=== PATIENT | male | born 1945 | race Caucasian/White ===

== ENCOUNTER 2017-01-17 11:16 | Emergency (ER) | payer MEDICARE ==
[2017-01-17] MEDS ORDERED: Phenergan 25 MG INJ IV ONE (11:43)
[2017-01-17] MEDS ORDERED: Hydromorphone 1 mg/ml Ampule IV ONE (11:43)
[2017-01-17] MEDS ORDERED: Sodium Chloride 0.9% 1000 ML 1,000 ML IV STA (11:43)
--- NOTE | 2017-01-17 11:44 | ERPHSYRPT ---
- History of Present Illness Time Seen by Provider: 01/17/17 11:37 Historian: patient Exam Limitations: no limitations Patient Subjective Stated Complaint: CO ABD PAIN AND LEFT FLANK PAIN STARTED YESTERDAY, NAUSEA AND VOMITING, NO FEVER. LAST BM YESTERDAY, CONSTIPATED, VOIDING BLOOD THIS AM Triage Nursing Assessment: PT ALERT,WALKED IN, RESP EASY, SIN W/D PINK, ABD SOFT WITH BS Physician History: The patient is a 71-year-old male who comes in complaining of left flank pain that began yesterday. He was very uncomfortable all night. He also vomited. He has a history of constipation. This morning he drank a half a bottle of magnesium citrate without good results. He also noticed a red tinged in his urine this morning. He has never had kidney stones. His past medical history significant for depression and hypertension. He's had no abdominal surgeries. Timing/Duration: yesterday Activities at Onset: none Quality: sharpness Abdominal Pain Onset Location: flank (left) Pain Radiation: groin Severity of Pain-Max: moderate Severity of Pain-Current: moderate Modifying Factors: Improves With: nothing Associated Symptoms: nausea, vomiting Previous symptoms: no prior history Allergies/Adverse Reactions: No Known Drug Allergies Allergy (Verified 01/17/17 11:33) Home Medications: Escitalopram Oxalate 10 mg [Lexapro 10 MG] 10 mg PO DAILY 03/27/12 [History] Valsartan/Hydrochlorothiazide [Valsartan-Hctz 160-25 mg Tab] 1 ea DAILY [History] Hx Tetanus, Diphtheria Vaccination/Date Given: Yes (UNKNOWN) Hx Influenza Vaccination/Date Given: No Hx Pneumococcal Vaccination/Date Given: No Immunizations Up to Date: Yes - Review of Systems Constitutional: No Fever, No Chills Eyes: No Symptoms Ears, Nose, & Throat: No Symptoms Respiratory: No Cough, No Dyspnea Cardiac: No Chest Pain, No Edema, No Syncope Abdominal/Gastrointestinal: Abdominal Pain, Nausea, Vomiting, Constipation, No Diarrhea Genitourinary Symptoms: Hematuria Musculoskeletal: No Back Pain, No Neck Pain Skin: No Rash Neurological: No Symptoms Psychological: No Symptoms Endocrine: No Symptoms Hematologic/Lymphatic: No Symptoms Immunological/Allergic: No Symptoms All Other Systems: Reviewed and Negative - Past Medical History Pertinent Past Medical History: Yes Cardiac History: Hypertension Psycho-Social History: Depression - Past Surgical History Past Surgical History: Yes Gastrointestinal: Hemorrhoidectomy - Social History Smoking Status: Current every day smoker Exposure to second hand smoke: Yes Drug Use: none Patient Lives Alone: Yes - Nursing Vital Signs Nursing Vital Signs: Initial Vital Signs Temperature 97.8 F 01/17/17 11:26 Pulse Rate 91 H 01/17/17 11:26 Respiratory Rate 20 01/17/17 11:26 Blood Pressure 150/38 01/17/17 11:26 O2 Sat by Pulse Oximetry 95 01/17/17 11:26 Pain Scale Pain Intensity 4 - Physical Exam General Appearance: moderate distress Eye Exam: PERRL/EOMI, eyes nml inspection Ears, Nose, Throat Exam: normal ENT inspection, pharynx normal, moist mucous membranes Neck Exam: normal inspection, non-tender, supple, full range of motion Respiratory Exam: normal breath sounds, lungs clear, No respiratory distress Cardiovascular Exam: regular rate/rhythm, normal heart sounds Gastrointestinal/Abdomen Exam: soft, No tenderness, No mass Rectal Exam: not done Back Exam: CVA tenderness (left) Extremity Exam: normal inspection, normal range of motion, pelvis stable Neurologic Exam: alert, oriented x 3, cooperative, normal mood/affect, nml cerebellar function, sensation nml, No motor deficits Skin Exam: normal color, warm, dry SpO2 Interpretation: normal SpO2: 95 Oxygen Delivery: Room Air - CT Exams Abdomen/Pelvis CT Interpretation: Other (5 to 6 mm left midureteral calculus with mild hydronephrosis. Enlarging left inguinal hernia. 3.[address] distal AAA. per Dr Greenberg.) Ordered Tests: Active Orders 24 hr Category Date Time Status IV Insertion STAT Care 01/17/17 11:43 Active ABDOMEN AND PELVIS W/0 CONTRAS [CT] Stat Exams 01/17/17 11:44 Completed CBC W DIFF Stat Lab 01/17/17 11:53 Completed CMP Stat Lab 01/17/17 11:53 Completed CULTURE,URINE Stat Lab 01/17/17 12:45 Received LIPASE Stat Lab 01/17/17 11:53 Completed TROPONIN Q3H Lab 01/17/17 11:45 Completed TROPONIN Q3H Lab 01/17/17 14:45 Ordered TROPONIN Q3H Lab 01/17/17 17:45 Ordered TROPONIN Q3H Lab 01/17/17 20:45 Ordered TROPONIN Q3H Lab 01/17/17 23:45 Ordered UA W/ MICROSCOPIC Stat Lab 01/17/17 12:45 Completed Medication Summary Generic Name Dose Route Start Last Admin Trade Name Wood PRN Reason Stop Dose Admin Ceftriaxone Sodium/Dextrose 1 g in 50 mls @ 100 mls/hr 01/17/17 13:27 13:38 Rocephin 1 Gm-D5w 50 Ml Bag IV 01/17/17 13:56 100 mls/hr STAT STA Administration Discontinued Medications Generic Name Dose Route Start Last Admin Trade Name Wood PRN Reason Stop Dose Admin Hydromorphone HCl 1 mg 01/17/17 11:43 01/17/17 11:53 Hydromorphone 1 Mg/Ml Ampule IV 01/17/17 11:44 1 mg STAT ONE Administration Hydromorphone HCl Confirm 01/17/17 11:51 Hydromorphone 1 Mg/Ml Ampule Administered 01/17/17 11:52 Dose 1 mg .ROUTE .STK-MED ONE Sodium Chloride 1,000 mls @ 999 mls/hr 01/17/17 11:43 01/17/17 11:53 Sodium Chloride 0.9% 1000 Ml IV 01/17/17 12:43 999 mls/hr .Q1H1M STA Administration Sodium Chloride Confirm 01/17/17 11:51 Sodium Chloride 0.9% 1000 Ml Administered 01/17/17 11:52 Dose 1,000 mls @ ud .ROUTE .STK-MED ONE Ceftriaxone Sodium/Dextrose Confirm 01/17/17 13:37 Rocephin 1 Gm-D5w 50 Ml Bag Administered 01/17/17 13:38 Dose 1 g in 50 mls @ ud IV .STK-MED ONE Ketorolac Tromethamine 30 mg 01/17/17 11:45 01/17/17 11:52 Toradol 30 Mg Injection IV 01/17/17 11:46 30 mg STAT ONE Administration Ketorolac Tromethamine Confirm 01/17/17 11:50 Toradol 30 Mg Injection Administered 01/17/17 11:51 Dose 30 mg .ROUTE .STK-MED ONE Promethazine HCl 12.5 mg 01/17/17 11:43 01/17/17 11:53 Phenergan 25 Mg Inj IV 01/17/17 11:44 12.5 mg STAT ONE Administration Promethazine HCl Confirm 01/17/17 11:50 Phenergan 25 Mg Inj Administered 01/17/17 11:51 Dose 25 mg .ROUTE .STK-MED ONE Tamsulosin HCl 0.4 mg 01/17/17 11:45 01/17/17 11:52 Flomax 0.4 Mg PO 01/17/17 11:46 0.4 mg DAILY STA Administration Tamsulosin HCl Confirm 01/17/17 11:51 Flomax 0.4 Mg Administered 01/17/17 11:52 Dose 0.4 mg .ROUTE .STK-MED ONE Lab/Rad Data: Laboratory Result Diagrams 01/17/17 11:53 01/17/17 11:53 Laboratory Results 01/17/17 01/17/17 01/17/17 Range/Units 12:45 11:53 11:53 WBC 13.2 H (4.0-10.5) K/mm3 RBC 4.88 (4.1-5.6) M/mm3 Hgb 14.3 (12.5-18.0) gm/dl Hct 42.2 (42-50) % MCV 86.5 (78-100) fl MCH 29.3 (26-32) pg MCHC 33.9 (32-36) g/dl RDW 13.6 (11.5-14.0) % Plt Count 263 (150-450) K/mm3 MPV 10.1 H (6-9.5) fl Gran % 82.7 H (36.0-66.0) % Lymphocytes % 7.6 L (24.0-44.0) % Monocytes % 9.4 (0.0-12.0) % Eosinophils % 0.1 (0.00-5.0) % Basophils % 0.2 (0.0-0.4) % Basophils # 0.02 (0-0.4) Sodium 143 (136-145) mEq/L Potassium 3.7 (3.5-5.1) mEq/L Chloride 103 (98-107) mEq/L Carbon Dioxide 28.0 (21-32) mEq/L Anion Gap 15.3 H (5-15) MEQ/L BUN 12 (9-20) mg/dL Creatinine 1.60 H (0.55-1.30) mg/dl Estimated GFR 46 ML/MIN Glucose 137 H (70-110) MG/DL Calcium 9.0 (8.5-10.1) mg/dL Total Bilirubin 0.60 (0.2-1.0) mg/dL AST 20 (15-37) U/L ALT 20 (12-78) U/L Alkaline Phosphatase 92 (46-116) U/L Troponin I (0.000-0.056) ng/ml Serum Total Protein 7.3 (6.4-8.2) gm/dL Albumin 3.6 (3.4-5.0) g/dL Lipase 81 (73-393) U/L Ur Collection Type VOID Urine Color BROWN (YELLOW) Urine Appearance CLOUDY (CLEAR) Urine pH 7.0 (5-6) Ur Specific [place] 1.010 (1.005-1.025) Urine Protein TRACE (Negative) Urine Ketones NEGATIVE (NEGATIVE) Urine Blood 250 (0-5) Uriel/ul Urine Nitrite NEGATIVE (NEGATIVE) Urine Bilirubin SMALL (NEGATIVE) Urine Urobilinogen 1 (0-1) mg/dL Ur Leukocyte Esterase 1+ (NEGATIVE) Urine Microscopic RBC >100 (0-2) /HPF Urine Microscopic WBC >100 (0-5) /HPF Urine Bacteria FEW (NEGATIVE) /HPF Urine Glucose TRACE (NEGATIVE) mg/dL Specimen Received 01/17/17 1245 01/17/17 Range/Units 11:45 WBC (4.0-10.5) K/mm3 RBC (4.1-5.6) M/mm3 Hgb (12.5-18.0) gm/dl Hct (42-50) % MCV (78-100) fl MCH (26-32) pg MCHC (32-36) g/dl RDW (11.5-14.0) % Plt Count (150-450) K/mm3 MPV (6-9.5) fl Gran % (36.0-66.0) % Lymphocytes % (24.0-44.0) % Monocytes % (0.0-12.0) % Eosinophils % (0.00-5.0) % Basophils % (0.0-0.4) % Basophils # (0-0.4) Sodium (136-145) mEq/L Potassium (3.5-5.1) mEq/L Chloride (98-107) mEq/L Carbon Dioxide (21-32) mEq/L Anion Gap (5-15) MEQ/L BUN (9-20) mg/dL Creatinine (0.55-1.30) mg/dl Estimated GFR ML/MIN Glucose (70-110) MG/DL Calcium (8.5-10.1) mg/dL Total Bilirubin (0.2-1.0) mg/dL AST (15-37) U/L ALT (12-78) U/L Alkaline Phosphatase (46-116) U/L Troponin I < 0.017 (0.000-0.056) ng/ml Serum Total Protein (6.4-8.2) gm/dL Albumin (3.4-5.0) g/dL Lipase (73-393) U/L Ur Collection Type Urine Color (YELLOW) Urine Appearance (CLEAR) Urine pH (5-6) Ur Specific [place] (1.005-1.025) Urine Protein (Negative) Urine Ketones (NEGATIVE) Urine Blood (0-5) Uriel/ul Urine Nitrite (NEGATIVE) Urine Bilirubin (NEGATIVE) Urine Urobilinogen (0-1) mg/dL Ur Leukocyte Esterase (NEGATIVE) Urine Microscopic RBC (0-2) /HPF Urine Microscopic WBC (0-5) /HPF Urine Bacteria (NEGATIVE) /HPF Urine Glucose (NEGATIVE) mg/dL Specimen Received - Progress Progress: improved Progress Note: 01/17/17 13:54 After Dilaudid 1 mg and Phenergan 12-1/2 mg by IV, the patient is feeling much better. - Departure Time of Disposition: 13:54 Departure Disposition: Home Clinical Impression: Left ureteral calculus, Hydronephrosis due to obstruction of ureter, Abdominal aortic aneurysm (AAA), UTI (urinary tract infection), Inguinal hernia Condition: Stable Critical Care Time: No Referrals: DONNA LAGUNA MD [Primary Care Provider] - Additional Instructions: You have a 5 mm kidney stone in the mid left ureter with mild hydronephrosis. You also have a UTI. The CT scan of the abdomen also showed a left inguinal hernia and a 3.1 cm abdominal aortic aneurysm. You were given Dilaudid 1 mg, Phenergan 12-1/2 mg, Rocephin 1 g, toradol 30 mg, and fluids by IV in the ER. You were also given Flomax 0.4 mg. Take ciprofloxacin 500 mg twice a day for 10 days. Take [place] one tablet every 4-6 hours as needed for pain. Stay well hydrated. Collect the stone after passage and take it to your local doctor. Follow-up this week with your local doctor to reevaluate the kidney stone and for follow-up of the aortic aneurysm. Prescriptions: Ciprofloxacin [Cipro 500 MG] 1 tab PO BID #20 tablet Hydrocodone/APAP 5/325 [[place] 5/325 mg] 1 each PO Q4-6HPRN PRN #10 tablet PRN Reason: Moderate Pain
[2017-01-17] MEDS ORDERED: Flomax 0.4 MG PO STA (11:45)
[2017-01-17] MEDS ORDERED: TORAdol 30 mg Injection IV ONE (11:45)
[2017-01-17] MEDS ORDERED: TORAdol 30 mg Injection ONE (11:50)
[2017-01-17] MEDS ORDERED: Phenergan 25 MG INJ ONE (11:50)
[2017-01-17] MEDS ORDERED: Hydromorphone 1 mg/ml Ampule ONE (11:51)
[2017-01-17] MEDS ORDERED: Flomax 0.4 MG ONE (11:51)
[2017-01-17] MEDS ORDERED: Sodium Chloride 0.9% 1000 ML 1,000 ML ONE (11:51)
[2017-01-17 12:02] LABS: BASOPHIL % 0.2 % (0.0-0.4); Eosinophil % 0.1 % (0.00-5.0); Granulocytes % 82.7 % (36.0-66.0); Lymphocytes % 7.6 % (24.0-44.0); Mean Cell Volume 86.5 fl (78-100); Mean Corpuscular Hemoglobin 29.3 pg (26-32); Mean Platelet Volume 10.1 fl (6-9.5); Monocytes % 9.4 % (0.0-12.0); Platelet Count 263 K/mm3 (150-450); Red Blood Count 4.88 M/mm3 (4.1-5.6); Red Cell Distribution Width 13.6 % (11.5-14.0); White Blood Count 13.2 K/mm3 (4.0-10.5)
[2017-01-17 12:25] LABS: ALBUMIN 3.6 g/dL (3.4-5.0); ANION GAP 15.3 MEQ/L (5-15); BILIRUBIN,TOTAL 0.6 mg/dL (0.2-1.0); Potassium 3.7 mEq/L (3.5-5.1); Total Protein 7.3 gm/dL (6.4-8.2)
--- NOTE | 2017-01-17 12:42 | XRAY ---
Indication: Left lower pelvic and back pain. Hematuria. Multiple contiguous axial images obtained through the abdomen and pelvis without contrast using renal stone protocol. Comparison: March 27, 2012. Lung bases again hyperinflated. Minimal bibasilar atelectasis/scarring. No infiltrate or effusion. Heart is not enlarged. There is now a 5-6 mm left midureteral calculus, approximately L5 level. Proximal left ureter is prominence and there is mild hydronephrosis and perinephric stranding consistent with partial obstructive uropathy. New 7 mm left lower renal calyx curvilinear calculus.. Stomach is moderately fluid distended. Noncontrasted bowel loops appear nonobstructed. Normal appendix. No free fluid/air. Again scattered hepatic/splenic calcified granulomas, 3.5 cm caudate lobe hepatic cyst, and benign prostate calcifications. Remaining liver, gallbladder, pancreas, spleen, adrenal glands, right kidney, right ureter, and bladder appear unremarkable for noncontrast exam. Again moderate aortoiliac calcifications with now 3.1 cm distal aortic fusiform aneurysm. Osseous structures intact. Interval worsening moderate size left inguinal hernia now containing knuckle of sigmoid colon without obstruction/incarceration. Impression: 1. New 5-6 mm left midureteral calculus producing partial obstruction as detailed. Additional new left renal subcentimeter calculus. 2. Enlarging left inguinal hernia now containing a knuckle of sigmoid colon without complications. 3. New 3.1 cm distal AAA. 4. Stable hepatic cyst and hepatic/splenic calcified granulomas. CT DI 22.97
[2017-01-17 12:47] LABS: Bilirubin SMALL (NEGATIVE); Blood 250 Ery/ul (0-5); COMPLETE URINE MICROSCOPIC? YES; Collection Type VOID; Glucose TRACE mg/dL (NEGATIVE); Leukocyte Esterase 1+ (NEGATIVE)
[2017-01-17 12:48] LABS: ADD URINE CULTURE? YES (NO)
[2017-01-17 13:17] LABS: Bacteria FEW /HPF (NEGATIVE); WBC >100 /HPF (0-5)
[2017-01-17 13:20] VITALS: PULSE 70
[2017-01-17] MEDS ORDERED: ROCEPHIN 1 Gm-D5w 50 ml Bag** 1 G/50 ML IVPB IV STA (13:27)
[2017-01-17 13:28] VITALS: O2SAT 95
[2017-01-17] MEDS ORDERED: ROCEPHIN 1 Gm-D5w 50 ml Bag** 1 G/50 ML IVPB IV ONE (13:37)
[2017-01-17 14:16] VITALS: BP 123/73
== END 2017-01-17 14:17 | disposition home or self-care (01) ==
LOC: ED 11:16
DX: N20.1 Calculus of ureter (principal); N13.1 Hydronephrosis with ureteral stricture, not elsewhere classified; I71.4 Abdominal aortic aneurysm, without rupture; N39.0 Urinary tract infection, site not specified; K40.90 Unilateral inguinal hernia, without obstruction or gangrene, not specified as recurrent; R11.2 Nausea with vomiting, unspecified; I10 Essential (primary) hypertension; K59.00 Constipation, unspecified
CPT/HCPCS: 36000; 36415; 74176; 80053; 81000; 83690; 84484; 85025; 87086; 96360; 96374; 96375; 99284; J0696; J1170; J1885; J2550; A9270-GY

== ENCOUNTER 2018-09-28 10:58 | Day surgery (SDC) | payer MEDICARE ==
--- NOTE | 2018-09-28 07:55 | HP ---
DATE OF SURGERY: 09/28/2018 ANTICIPATED PROCEDURE: Repair. ADMISSION DIAGNOSIS: Moderate sized symptomatic left inguinal hernia. HISTORY OF PRESENT ILLNESS: The patient has a moderate sized symptomatic left inguinal hernia and presents for repair. PAST MEDICAL HISTORY: ALLERGIES: NONE. MEDICATIONS: Losartan. PAST SURGICAL HISTORY: Hemorrhoidectomy. SOCIAL HISTORY: Half pack per day. ETOH negative. FAMILY HISTORY: Negative. REVIEW OF SYSTEMS: CVS: Negative. Pulmonary: Negative. GI: Negative. : Negative. PHYSICAL EXAMINATION: VITAL SIGNS: Normal. CHEST: Clear. COR: Regular. ABDOMEN: Left inguinal hernia. IMPRESSION: Symptomatic left inguinal hernia. PLAN: Repair.
[~2018-09-28 10:58] MED LIST: Lactated Ringers 1,000 ML IV ONE; Sensorcaine 0.25% 10 ML ONE
[2018-09-28] MEDS ORDERED: Zofran 4 MG/2 ML VIAL IV ONE (10:59)
[2018-09-28] MEDS ORDERED: SUBLIMAZE 100 MCG/2 ML IV ONE (10:59)
[2018-09-28] MEDS ORDERED: DIPRIVAN 200 MG/20 ML IV ONE (10:59)
[2018-09-28] MEDS ORDERED: TORAdol 30 mg Injection IJ ONE (10:59)
[2018-09-28] MEDS ORDERED: Zemuron 100 MG/10 ML IJ ONE (10:59)
[2018-09-28] MEDS ORDERED: Decadron 4 MG INJ IV ONE (10:59)
[2018-09-28] MEDS ORDERED: Lactated Ringers 1,000 ML IV SCH (11:30)
[2018-09-28] MEDS ORDERED: CEFAZOLIN 2 GM-D5W BAG** 2 GM/50 ML ML IV ONE (11:30)
[2018-09-28] MEDS ORDERED: Lactated Ringers 1,000 ML IV ONE (11:30)
[2018-09-28] MEDS ORDERED: CEFAZOLIN 2 GM-D5W BAG** 2 GM/50 ML ML IV SCH (11:30)
[2018-09-28] MEDS ORDERED: KEFZOL 1 GM ONE (12:54)
[2018-09-28] MEDS ORDERED: DILAUDID 2 MG INJECTION ONE (14:11)
[2018-09-28] MEDS ORDERED: SUBLIMAZE 100 MCG/2 ML ONE (14:11)
[2018-09-28 15:32] VITALS: O2SAT 98
[2018-09-28] MEDS ORDERED: Zofran 4 MG/2 ML VIAL IV STA (15:34)
[2018-09-28] MEDS ORDERED: MORPHINE SULFATE 2 MG INJ IV ONE (15:35)
[2018-09-28 16:09] VITALS: BP 143/72; PULSE 78
--- NOTE | 2018-09-29 09:30 | OP ---
SURGERY DATE/TIME: 09/28/2018 1308 PREOPERATIVE DIAGNOSIS: Left inguinal hernia. POSTOPERATIVE DIAGNOSIS: Left inguinal hernia large with incarcerated sliding colon. PROCEDURE: Left inguinal herniorrhaphy with mesh, difficult. SURGEON: Heriberto Treadwell M.D. ANESTHESIA: General. COMPLICATIONS: None. CONDITION: Stable. INDICATION: The patient has symptomatic left inguinal hernia. DESCRIPTION OF PROCEDURE: Taken to surgery. General anesthetic. Routine prep and drape. Curvilinear incision. 0.25% Marcaine. External oblique opened. Cord skeletonized. There was a very thick cord being nearly 3 inches. There was an 8 inch long sac 3 inches wide. Around 90 degrees of this was sliding sigmoid colon about 8 inches of colon going out and about 8 inches coming back where 16 inch loop was present. Pseudo sac was dissected. The colon reduced. The pseudo sac closed with 0 Prolene under direct visualization. The floor reinforced with a preform mesh secured with 0 Prolene throughout. Internal ring was one clamp tight. Hemostasis satisfactory. External oblique closed with 0 Vicryl. Monica fascia closed with 2-0 Vicryl. Skin closed with 4-0 Vicryl. Steri-Strips applied. Sterile dressing applied. The patient tolerated the procedure satisfactorily.
== END 2018-09-28 16:26 | disposition home or self-care (01) ==
LOC: SDC 10:58
PROVIDERS: ATTEND Surgery
DX: K40.30 Unilateral inguinal hernia, with obstruction, without gangrene, not specified as recurrent (principal)
CPT/HCPCS: 49507; C1781; 88302; 99100; J0690; J1100; J1170; J1885; J2270; J2405; J2704; J3010

== ENCOUNTER 2024-03-13 15:35 | Observation (INO) | payer MEDICARE ==
--- NOTE | 2024-03-13 15:52 | ERPHSYRPT ---
- History of Present Illness Time Seen by Provider: 03/13/24 15:49 Historian: patient Exam Limitations: no limitations Patient Subjective Stated Complaint: Pt states "I have been having cramps in my chest at night for the past week. Today I was cleaning out the gutters and it started to hurt and I used one of those oxygen finger things and my rate was in the 180's. It does not hurt now." Triage Nursing Assessment: Pt presented alert and oriented X 3, skin wpd. Pt ambulates with an upright steady gait, able to speak in clear full sentences. Pt resting cofortably on the bed. Physician History: 79-year-old male history of hypertension hypercholesterolemia current smoker last cardiac stress test was in 2019 presents to our ED for evaluation of intermittent chest pain that has been ongoing throughout the week. However today patient was working on his gutters and the pain reoccurred. Patient checked his pulse on a pulse oximeter and reports that it was 180. No active chest pain at this time. Patient took a 181 mg aspirin just prior to arrival. No associated nausea no vomiting no diaphoresis. Symptoms when present were moderate in intensity. Activity seems to worsen symptoms. Patient otherwise feels well. He voices no other complaints or concerns at this time. Portions of this note were created with voice recognition technology. There may be grammatical, spelling, punctuation or sound alike errors Timing/Duration: day(s) (3 days) Activities at Onset: activity Quality: aching Location: substernal Chest Pain Radiation: no radiation Severity of Pain-Max: moderate Severity of Pain-Current: mild Modifying Factors: Improves With: nothing Associated Symptoms: denies symptoms Nitro Today/Relief: no nitro taken today Aspirin Treatment Today: 81 mg x 1 Allergies/Adverse Reactions: No Known Drug Allergies Allergy (Verified 09/28/18 11:56) Home Medications: Escitalopram Oxalate [Lexapro] 10 mg PO DAILY 03/27/12 [History] Valsartan/Hydrochlorothiazide [Valsartan-Hctz 160-25 mg Tab] 1 ea PO DAILY 01/17/17 [History] Atorvastatin Calcium [Lipitor] 20 mg PO DAILY 03/13/24 [History] PANTOPRAZOLE 40 mg Tablet [Protonix 40MG Tablet] 40 mg PO DAILY 03/13/24 [History] Hx Tetanus, Diphtheria Vaccination/Date Given: No (UNKNOWN) Hx Influenza Vaccination/Date Given: No Hx Pneumococcal Vaccination/Date Given: No Travel Risk - International Travel Have you traveled outside of the country in past 3 weeks: No - Emerging Infectious Disease Are you exhibiting symptoms associated with any current EIDs: No - Review of Systems Constitutional: No Symptoms, No Fever, No Chills Eyes: No Symptoms Ears, Nose, & Throat: No Symptoms Respiratory: No Symptoms, No Cough, No Dyspnea Cardiac: No Symptoms, No Chest Pain, No Edema, No Syncope Abdominal/Gastrointestinal: No Symptoms, No Abdominal Pain, No Nausea, No Vomiti ng, No Diarrhea Genitourinary Symptoms: No Symptoms, No Dysuria Musculoskeletal: No Symptoms, No Back Pain, No Neck Pain Skin: No Symptoms, No Rash Neurological: No Symptoms, No Dizziness, No Focal Weakness, No Sensory Changes Psychological: No Symptoms Endocrine: No Symptoms Hematologic/Lymphatic: No Symptoms Immunological/Allergic: No Symptoms All Other Systems: Reviewed and Negative - Past Medical History Pertinent Past Medical History: Yes Neurological History: No Pertinent History ENT History: No Pertinent History Cardiac History: High Cholesterol, Hypertension Respiratory History: No Pertinent History Endocrine Medical History: No Pertinent History Musculoskeletal History: No Pertinent History GI Medical History: GERD History: No Pertinent History Psycho-Social History: Depression Male Reproductive Disorders: No Pertinent History - Past Surgical History Past Surgical History: Yes Gastrointestinal: Hemorrhoidectomy Other Surgical History: hernia - Social History Smoking Status: Current every day smoker How long have you smoked: years Exposure to second hand smoke: Yes Drug Use: none Patient Lives Alone: Yes - Social Determinants of Health Will the patient participate in the screening: Declined to provide - Nursing Vital Signs Nursing Vital Signs: Initial Vital Signs Temperature 97.6 F 03/13/24 15:35 Pulse Rate 101 H 03/13/24 15:35 Respiratory Rate 18 03/13/24 15:35 Blood Pressure 107/75 03/13/24 15:35 O2 Sat by Pulse Oximetry 97 03/13/24 15:35 Pain Scale Pain Intensity 0 - Physical Exam General Appearance: no apparent distress, alert Eye Exam: PERRL/EOMI, eyes nml inspection Ears, Nose, Throat Exam: normal ENT inspection, moist mucous membranes Neck Exam: normal inspection, non-tender, supple, full range of motion Respiratory Exam: normal breath sounds, lungs clear, airway intact, No respiratory distress Cardiovascular Exam: regular rate/rhythm, normal heart sounds Gastrointestinal/Abdomen Exam: soft, No tenderness, No mass Back Exam: normal inspection, No CVA tenderness, No vertebral tenderness Extremity Exam: normal inspection, normal range of motion Neurologic Exam: alert, oriented x 3, cooperative, normal mood/affect, sensation nml, No motor deficits Skin Exam: normal color, warm, dry SpO2 Interpretation: normal SpO2: 97 O2 Delivery: Room Air - Course Nursing assessment & vital signs reviewed: Yes EKG Interpreted by Me: RATE (101), Sinus Tach, NORMAL AXIS, NORMAL INTERVALS, NORMAL QRS - CT Exams Chest CT Interpretation: Tele-radiologist Report (No PE. Emphysema, 5 mm right upper lobe not calcified lung nodule small hiatal hernia fatty liver 3.6 cm distal AAA) Ordered Tests: Active Orders 24 hr Category Date Time Status Embedded Software Manager STAT Care 03/13/24 15:48 Active EKG-ER Only STAT Care 03/13/24 15:47 Active IV Insertion STAT Care 03/13/24 15:47 Active Pulse Oximetry (ED) STAT Care 03/13/24 15:47 Active CHEST WITH CONTRAST [CT] Stat Exams 03/13/24 16:13 Taken CBC W DIFF Stat Lab 03/13/24 15:30 Completed CMP Stat Lab 03/13/24 15:30 Completed D-DIMER QUANTITATIVE Stat Lab 03/13/24 15:30 Completed NT PRO BNPII Stat Lab 03/13/24 15:30 Completed TROPONIN Q4H Lab 03/13/24 15:30 Completed TROPONIN Q4H Lab 03/13/24 18:05 Completed TROPONIN Q4H Lab 03/14/24 00:00 Ordered UA W/RFX UR CULTURE Stat Lab 03/13/24 18:20 Received Transfer Order Routine Transfer 03/13/24 Ordered Medication Summary Discontinued Medications Generic Name Dose Route Start Last Admin Trade Name Freq PRN Reason Stop Dose Admin Aspirin 243 mg 03/13/24 15:52 03/13/24 16:19 Aspirin 81 Mg Tab.Chew PO 03/13/24 15:53 243 mg STAT ONE Administration Aspirin Confirm 03/13/24 16:19 Aspirin 81 Mg Tab.Chew Administered 03/13/24 16:20 Dose 243 mg .ROUTE .STK-MED ONE Lab/Rad Data: Laboratory Result Diagrams 03/13/24 15:30 03/13/24 15:30 Laboratory Results 03/13/24 03/13/24 03/13/24 Range/Units 18:05 15:30 15:30 WBC (4.23-9.07) x10^3/uL RBC (4.63-6.08) x10^6/uL Hgb (13.7-17.5) g/dL Hct (40.1-51.0) % MCV (79.0-92.2) fL MCH (25.7-32.2) pg MCHC (32.3-36.5) g/dL RDW (11.6-14.4) % Plt Count (163-337) x10^3/uL MPV (9.4-12.4) fL Gran % (34.0-67.9) % Immature Gran % (Auto) (0.001-0.429) % Nucleat RBC Rel Count (0.00-0.2) % Eos # (Auto) (0.04-0.54) x10^3/uL Immature Gran # (Auto) (0.001-0.031) x10^3u/L Absolute Lymphs (auto) (1.32-3.57) x10^3/uL Absolute Monos (auto) (0.30-0.82) x10^3/uL Absolute Nucleated RBC (0.00-0.012) x10^3u/L Lymphocytes % (21.8-53.1) % Monocytes % (5.3-12.2) % Eosinophils % (0.8-7.0) % Basophils % (0.2-1.2) % Absolute Granulocytes (1.78-5.38) x10^3/uL Basophils # (0.01-0.08) x10^3/uL D-Dimer 0.75 H* (0.0-0.50) mg/L Sodium (135-145) mmol/L Potassium (3.5-5.1) mmol/L Chloride (98-107) mmol/L Carbon Dioxide (22-30) mmol/L Anion Gap (5-15) MEQ/L BUN (9-20) mg/dL Creatinine (0.66-1.25) mg/dL Estimated GFR ML/MIN Glucose (74-106) mg/dL Calcium (8.4-10.2) mg/dL Total Bilirubin (0.2-1.3) mg/dL AST (17-59) U/L ALT (0-50) U/L Alkaline Phosphatase (38-126) U/L Troponin I < 0.012 < 0.012 (0.000-0.033) ng/mL NT-Pro-B Natriuret Pep (<300) pg/mL Serum Total Protein (6.3-8.2) g/dL Albumin (3.5-5.0) g/dL 03/13/24 03/13/24 Range/Units 15:30 15:30 WBC 9.5 H (4.23-9.07) x10^3/uL RBC 4.71 (4.63-6.08) x10^6/uL Hgb 14.8 (13.7-17.5) g/dL Hct 43.1 (40.1-51.0) % MCV 91.5 (79.0-92.2) fL MCH 31.4 (25.7-32.2) pg MCHC 34.3 (32.3-36.5) g/dL RDW 13.3 (11.6-14.4) % Plt Count 241 (163-337) x10^3/uL MPV 8.7 L (9.4-12.4) fL Gran % 77.5 H (34.0-67.9) % Immature Gran % (Auto) 0.2 (0.001-0.429) % Nucleat RBC Rel Count 0.0 (0.00-0.2) % Eos # (Auto) 0.12 (0.04-0.54) x10^3/uL Immature Gran # (Auto) 0.02 (0.001-0.031) x10^3u/L Absolute Lymphs (auto) 1.17 L (1.32-3.57) x10^3/uL Absolute Monos (auto) 0.79 (0.30-0.82) x10^3/uL Absolute Nucleated RBC 0.00 (0.00-0.012) x10^3u/L Lymphocytes % 12.3 L (21.8-53.1) % Monocytes % 8.3 (5.3-12.2) % Eosinophils % 1.3 (0.8-7.0) % Basophils % 0.4 (0.2-1.2) % Absolute Granulocytes 7.34 H (1.78-5.38) x10^3/uL Basophils # 0.04 (0.01-0.08) x10^3/uL D-Dimer (0.0-0.50) mg/L Sodium 136 (135-145) mmol/L Potassium 4.5 (3.5-5.1) mmol/L Chloride 103 (98-107) mmol/L Carbon Dioxide 23 (22-30) mmol/L Anion Gap 14.7 (5-15) MEQ/L BUN 18 (9-20) mg/dL Creatinine 1.55 H (0.66-1.25) mg/dL Estimated GFR 45.8 ML/MIN Glucose 129 H (74-106) mg/dL Calcium 9.4 (8.4-10.2) mg/dL Total Bilirubin 0.50 (0.2-1.3) mg/dL AST 26 (17-59) U/L ALT 25 (0-50) U/L Alkaline Phosphatase 86 (38-126) U/L Troponin I (0.000-0.033) ng/mL NT-Pro-B Natriuret Pep 133 (<300) pg/mL Serum Total Protein 7.0 (6.3-8.2) g/dL Albumin 4.1 (3.5-5.0) g/dL - Progress Progress: improved Air Movement: good Progress Note: 79-year-old male history of hypertension hypercholesterolemia current smoker presents to our ED for evaluation of intermittent chest pain over the past week. Chest pain worse today while hanging gutters. No acute findings on EKG. D- dimer positive. CTA chest reveals emphysema. No PE. Laboratory workup significant for chronic renal insufficiency. Troponin negative x 2. Given patient's cardiac risk factors patient will require hospitalization for cardiac rule out. Aspirin administered. Patient has no active chest pain at this time. Nitroglycerin held. Patient's last cardiac stress test was in 2019. Of note, patient has a known AAA. But the AAA has been in the 3 cm range for several years. The AAA is now 3.6 cm. Patient has no abdominal pain. No indication for further workup of this known AAA. It appears to be stable. Patient will require hospitalization for further evaluation and treatment of his chest pain. Plan of care discussed with patient. He agrees to admission [facility] for further evaluation and treatment. Case discussed with hospitalist Dr. Bobo who accepts admission to observation at 6:37 PM. Portions of this note were created with voice recognition technology. There may be grammatical, spelling, punctuation or sound alike errors Complexity of problem addressed is moderate acute complicated no critical care time. Complexity of data reviewed and analyzed is extensive. Test ordered chest reviewed results analyzed and correlated clinically with history and physical exam. Management discussed with hospitalist who excepts admission to o bservation. Risk of morbidity/telemetry is high. Patient requires hospitalization for further evaluation and treatment. Vital stable. Time spent admit patient approximately 20 minutes. Plan of care established for shared decision making. No social determinants of health present to impede follow-up. Portions of this note were created with voice recognition technology. There may be grammatical, spelling, punctuation or sound alike errors 03/13/24 18:52 Blood Culture(s) Obtained: No Antibiotics given: No Counseled pt/family regarding: lab results, diagnosis, rad results - Departure Departure Disposition: Observation Clinical Impression: Chest pain, ACS (acute coronary syndrome), Chronic renal insufficiency, Emphysema lung, Noncalcified lung nodule, 3.6 cm AAA Condition: Stable Critical Care Time: No Referrals: DONNA LAGUNA MD [Primary Care Provider] - Follow up/PCP as directed Instructions: Chronic Obstructive Pulmonary Disease Additional Instructions: Discharge/Care Plan BOBBI VILLARREAL was seen on 03/13/24 in the Emergency Room. The patient was counseled regarding Diagnosis,Lab results, Imaging studies, need for follow up and when to return to the Emergency Room. Prescriptions given: Discharge Note I have spoken with the patient and/or caregivers. I have explained the patient's condition, diagnosis and treatment plan based on the information available to me at this time. I have answered the patient's and/or caregiver's questions and addressed any concerns. The patient and/or caregivers have as good understanding of the patient's diagnosis, condition and treatment plan as can be expected at this point. The vital signs have been stable. The patient's condition is stable and appropriate for discharge from the emergency department. The patient will pursue further outpatient evaluation with the primary care physician or other designated or consulting physician as outlined in the discharge instructions. The patient and/or caregivers are agreeable to this plan of care and follow-up instructions have been explained in detail. The patient and/or caregivers have received these instruction. The patient/and or caregivers are aware that any significant change in condition or worsening of symptoms should prompt an immediate return to this or the closest emergency department or call 911.
[2024-03-13 15:53] LABS: Absolute Neutrophil Ct (ANC) 7.34 x10^3/uL (1.78-5.38); BASOPHIL % 0.4 % (0.2-1.2); Basophil (Absolute #) 0.04 x10^3/uL (0.01-0.08); Eosinophil % 1.3 % (0.8-7.0); Eosinophil (Absolute #) 0.12 x10^3/uL (0.04-0.54); Hematocrit 43.1 % (40.1-51.0); Hemoglobin 14.8 g/dL (13.7-17.5); IMMATURE GRAN # 0.02 x10^3u/L (0.001-0.031); IMMATURE GRAN % 0.2 % (0.001-0.429); Lymphocyte (Absolute #) 1.17 x10^3/uL (1.32-3.57); Lymphocytes % 12.3 % (21.8-53.1); Mean Cell Volume 91.5 fL (79.0-92.2); Mean Corpuscular Hemoglobin 31.4 pg (25.7-32.2); Mean Corpuscular Hgb Concent. 34.3 g/dL (32.3-36.5); Mean Platelet Volume 8.7 fL (9.4-12.4); Monocyte (Absolute #) 0.79 x10^3/uL (0.30-0.82); Monocytes % 8.3 % (5.3-12.2); Neutrophil % 77.5 % (34.0-67.9); Platelet Count 241 x10^3/uL (163-337); Red Blood Count 4.71 x10^6/uL (4.63-6.08); Red Cell Distribution Width 13.3 % (11.6-14.4); White Blood Count 9.5 x10^3/uL (4.23-9.07)
[2024-03-13 16:14] LABS: ALBUMIN 4.1 g/dL (3.5-5.0); ANION GAP 14.7 MEQ/L (5-15); BILIRUBIN,TOTAL 0.5 mg/dL (0.2-1.3); Calcium 9.4 mg/dL (8.4-10.2); Creatinine 1 1.55 mg/dL (0.66-1.25); EST GLOMERULAR FILTRATION RATE 45.8 ML/MIN; Potassium 4.5 mmol/L (3.5-5.1)
[2024-03-13] MEDS ORDERED: BABY ASPIRIN 81 MG CHEW ONE (16:19)
[2024-03-13] MEDS: BABY ASPIRIN 81 MG CHEW PO ONE (16:19)
[2024-03-13 18:45] LABS: Appearance Clear (Clear); Bacteria None Seen /HPF (None Seen); Bilirubin Negative (Negative); Blood Negative (Negative); Epithelial Cells None Seen /HPF (None Seen); Glucose, Urine Negative (Negative); Ketones Negative (Negative); Leukocyte Esterase Negative (Negative); Nitrite Negative (Negative); Ph 7.5 (4.6-8.0); Protein,Urine Dip Negative (Negative); Specific Gravity >=1.030 (1.005-1.030); WBC 0-2 /HPF (0-5)
[2024-03-13] MEDS ORDERED: MILK OF MAGNESIA 30 ML PO PRN (19:33)
[2024-03-13] MEDS ORDERED: Zofran 4 MG/2 ML VIAL IV PRN (19:33)
[2024-03-13] MEDS ORDERED: Senokot-S Tablet PO PRN (19:33)
[2024-03-13] MEDS ORDERED: Nitrostat 0.4 MG Tablet SL PRN (19:33)
[2024-03-13] MEDS ORDERED: TYLENOL 325 MG PO PRN (19:33)
--- NOTE | 2024-03-13 19:40 | PCM.HP ---
History of Present Illness - Chief Complaint Chief Complaint: CHEST PAIN Date: 03/13/24 History of Present Illness: is a 79 year old male with a history of hypertension, hypercholesterolemia, and tobacco use, but with no history of CAD (last cardiac stress test was in 2019) who presented to the ED for evaluation of intermittent chest pain that has been ongoing throughout the week. However today patient was working on his gutters and the pain reoccurred. Patient checked his pulse on a pulse oximeter and reports that it was 180. No active chest pain at this time. Patient took a 181 mg aspirin just prior to arrival. No associated nausea no vomiting no diaphoresis. Symptoms when present were moderate in intensity with a cramping quality. Activity seems to worsen symptoms. Patient otherwise feels well. He voices no other complaints or concerns at this time. The patient also reported cramping and discoloration in both legs for the past several months. The patient's son and [id number] are present at bedside for my evaluation. . - Review of Systems Constitutional: No Symptoms Eyes: No Symptoms Ears, Nose, & Throat: No Symptoms Respiratory: No Symptoms Cardiac: Chest Pain Abdominal/Gastrointestinal: No Symptoms Genitourinary Symptoms: No Symptoms Musculoskeletal: Myalgias Skin: No Symptoms Neurological: No Symptoms Psychological: No Symptoms Endocrine: No Symptoms Hematologic/Lymphatic: No Symptoms Immunological/Allergic: No Symptoms All Other Systems: Reviewed and Negative Medications & Allergies Home Medications: Home Medication List Escitalopram Oxalate [Lexapro] 10 mg PO DAILY 03/27/12 [History Confirmed 03/13/24] Valsartan/Hydrochlorothiazide [Valsartan-Hctz 160-25 mg Tab] 1 ea PO DAILY 01/17/17 [History Confirmed 03/13/24] Atorvastatin Calcium [Lipitor] 20 mg PO DAILY 03/13/24 [History Confirmed 03/13/24] PANTOPRAZOLE 40 mg Tablet [Protonix 40MG Tablet] 40 mg PO DAILY 03/13/24 [History Confirmed 03/13/24] Allergies/Adverse Reactions: Allergies Allergy/AdvReac Type Severity Reaction Status Date / Time No Known Drug Allergies Allergy Verified 09/28/18 11:56 - Past Medical History Past Medical History: Yes Neurological History: No Pertinent History ENT History: No Pertinent History Cardiac History: High Cholesterol, Hypertension Respiratory History: No Pertinent History Endocrine Medical History: No Pertinent History Musculoskelatal History: No Pertinent History GI Medical History: GERD History: No Pertinent History Pyscho-Social History: Depression Male Reproductive Disorders: No Pertinent History - Past Surgical History Past Surgical History: Yes GI Surgical History: Hemorrhoidectomy Other Surgical History: hernia Family History: No history of early CAD. The patient's mother was diagnosed with CHF in her late 60s. - Social History Smoking Status: Current every day smoker How long have you smoked: years Exposure to second hand smoke: Yes Alcohol: Occasionally Drug Use: none - Social Determinants of Health Will the patient participate in the screening: Declined to provide - Physical Exam Vital Signs: Vital Signs - 24 hr Temp Pulse Pulse Resp BP BP Pulse Ox 03/13/24 18:56 97 03/13/24 18:29 83 20 145/88 98 03/13/24 18:20 85 19 97 03/13/24 18:17 83 17 98 03/13/24 18:00 83 16 98 03/13/24 17:45 87 20 110/82 97 03/13/24 17:30 86 20 126/81 96 03/13/24 17:15 87 17 117/75 97 03/13/24 17:06 86 21 121/70 96 03/13/24 16:45 89 23 104/86 98 03/13/24 16:30 90 14 115/79 95 03/13/24 16:15 97 H 22 114/82 94 L 03/13/24 16:07 96 03/13/24 16:00 99 H 23 118/86 93 L 03/13/24 15:45 94 H 18 99/73 95 03/13/24 15:35 97.6 F 101 H 100 H 18 107/75 97 General Appearance: no apparent distress, alert Neurologic Exam: alert, oriented x 3, cooperative, loader demolder II-XII nml as tested, normal mood/affect, nml cerebellar function Eye Exam: PERRL/EOMI, eyes nml inspection Ears, Nose, Throat Exam: normal ENT inspection Neck Exam: normal inspection, non-tender, supple, full range of motion Respiratory Exam: normal breath sounds, lungs clear Cardiovascular Exam: regular rate/rhythm, normal heart sounds Gastrointestinal/Abdomen Exam: soft, normal bowel sounds Back Exam: normal range of motion Extremity Exam: normal inspection, normal range of motion Skin Exam: normal color, other (no cyanosis or violaceous appearance of foot/leg) Results - Labs Lab/Micro Results: Lab Results-Last 24 Hours 03/13/24 03/13/24 03/13/24 Range/Units 15:30 15:30 15:30 WBC 9.5 H (4.23-9.07) x10^3/uL RBC 4.71 (4.63-6.08) x10^6/uL Hgb 14.8 (13.7-17.5) g/dL Hct 43.1 (40.1-51.0) % MCV 91.5 (79.0-92.2) fL MCH 31.4 (25.7-32.2) pg MCHC 34.3 (32.3-36.5) g/dL RDW 13.3 (11.6-14.4) % Plt Count 241 (163-337) x10^3/uL MPV 8.7 L (9.4-12.4) fL Gran % 77.5 H (34.0-67.9) % Immature Gran % (Auto) 0.2 (0.001-0.429) % Nucleat RBC Rel Count 0.0 (0.00-0.2) % Eos # (Auto) 0.12 (0.04-0.54) x10^3/uL Immature Gran # (Auto) 0.02 (0.001-0.031) x10^3u/L Absolute Lymphs (auto) 1.17 L (1.32-3.57) x10^3/uL Absolute Monos (auto) 0.79 (0.30-0.82) x10^3/uL Absolute Nucleated RBC 0.00 (0.00-0.012) x10^3u/L Lymphocytes % 12.3 L (21.8-53.1) % Monocytes % 8.3 (5.3-12.2) % Eosinophils % 1.3 (0.8-7.0) % Basophils % 0.4 (0.2-1.2) % Absolute Granulocytes 7.34 H (1.78-5.38) x10^3/uL Basophils # 0.04 (0.01-0.08) x10^3/uL D-Dimer 0.75 H* (0.0-0.50) mg/L Sodium 136 (135-145) mmol/L Potassium 4.5 (3.5-5.1) mmol/L Chloride 103 (98-107) mmol/L Carbon Dioxide 23 (22-30) mmol/L Anion Gap 14.7 (5-15) MEQ/L BUN 18 (9-20) mg/dL Creatinine 1.55 H (0.66-1.25) mg/dL Estimated GFR 45.8 ML/MIN Glucose 129 H (74-106) mg/dL Calcium 9.4 (8.4-10.2) mg/dL Total Bilirubin 0.50 (0.2-1.3) mg/dL AST 26 (17-59) U/L ALT 25 (0-50) U/L Alkaline Phosphatase 86 (38-126) U/L Troponin I (0.000-0.033) ng/mL NT-Pro-B Natriuret Pep 133 (<300) pg/mL Serum Total Protein 7.0 (6.3-8.2) g/dL Albumin 4.1 (3.5-5.0) g/dL Urine Color (Yellow) Urine Appearance (Clear) Urine pH (4.6-8.0) Ur Specific [place] (1.005-1.030) Urine Protein (Negative) Urine Glucose (UA) (Negative) mg/dL Urine Ketones (Negative) Urine Blood (Negative) Urine Nitrite (Negative) Urine Bilirubin (Negative) Urine Urobilinogen (0.2) mg/dL Ur Leukocyte Esterase (Negative) U Hyaline Cast (Auto) (0-2) /LPF Urine Microscopic RBC (0-5) /HPF Urine Microscopic WBC (0-5) /HPF Ur Epithelial Cells (None Seen) /HPF Urine Bacteria (None Seen) /HPF Urine Culture Reflexed (NO) 03/13/24 03/13/24 03/13/24 Range/Units 15:30 18:05 18:20 WBC (4.23-9.07) x10^3/uL RBC (4.63-6.08) x10^6/uL Hgb (13.7-17.5) g/dL Hct (40.1-51.0) % MCV (79.0-92.2) fL MCH (25.7-32.2) pg MCHC (32.3-36.5) g/dL RDW (11.6-14.4) % Plt Count (163-337) x10^3/uL MPV (9.4-12.4) fL Gran % (34.0-67.9) % Immature Gran % (Auto) (0.001-0.429) % Nucleat RBC Rel Count (0.00-0.2) % Eos # (Auto) (0.04-0.54) x10^3/uL Immature Gran # (Auto) (0.001-0.031) x10^3u/L Absolute Lymphs (auto) (1.32-3.57) x10^3/uL Absolute Monos (auto) (0.30-0.82) x10^3/uL Absolute Nucleated RBC (0.00-0.012) x10^3u/L Lymphocytes % (21.8-53.1) % Monocytes % (5.3-12.2) % Eosinophils % (0.8-7.0) % Basophils % (0.2-1.2) % Absolute Granulocytes (1.78-5.38) x10^3/uL Basophils # (0.01-0.08) x10^3/uL D-Dimer (0.0-0.50) mg/L Sodium (135-145) mmol/L Potassium (3.5-5.1) mmol/L Chloride (98-107) mmol/L Carbon Dioxide (22-30) mmol/L Anion Gap (5-15) MEQ/L BUN (9-20) mg/dL Creatinine (0.66-1.25) mg/dL Estimated GFR ML/MIN Glucose (74-106) mg/dL Calcium (8.4-10.2) mg/dL Total Bilirubin (0.2-1.3) mg/dL AST (17-59) U/L ALT (0-50) U/L Alkaline Phosphatase (38-126) U/L Troponin I < 0.012 < 0.012 (0.000-0.033) ng/mL NT-Pro-B Natriuret Pep (<300) pg/mL Serum Total Protein (6.3-8.2) g/dL Albumin (3.5-5.0) g/dL Urine Color Yellow (Yellow) Urine Appearance Clear (Clear) Urine pH 7.5 (4.6-8.0) Ur Specific [place] >=1.030 A (1.005-1.030) Urine Protein Negative (Negative) Urine Glucose (UA) Negative (Negative) mg/dL Urine Ketones Negative (Negative) Urine Blood Negative (Negative) Urine Nitrite Negative (Negative) Urine Bilirubin Negative (Negative) Urine Urobilinogen 1.0 A (0.2) mg/dL Ur Leukocyte Esterase Negative (Negative) U Hyaline Cast (Auto) 3-5 A (0-2) /LPF Urine Microscopic RBC 3-5 (0-5) /HPF Urine Microscopic WBC 0-2 (0-5) /HPF Ur Epithelial Cells None Seen (None Seen) /HPF Urine Bacteria None Seen (None Seen) /HPF Urine Culture Reflexed NO (NO) - Radiology Impressions Radiology Exams & Impressions: Radiology Procedures Category Date Time Status CHEST WITH CONTRAST [CT] Stat Exams 03/13/24 16:13 Taken - Other Procedures and Tests Respiratory Therapy 03/13/24 19:33 EKG Q8HX2,QAMX3,PRN Assessment/Plan (1) Chest pain Current Visit: Yes Status: Acute Assessment & Plan: Serial cardiac enzymes on tele. ECHO. May need referral back to Dr. Enrique for stress test and ABIs. Placed on ASA. Code(s): R07.9 - CHEST PAIN, UNSPECIFIED (2) Claudication Current Visit: Yes Status: Acute Assessment & Plan: Check lipid panel. On ASA. Would benefit from outpatient ABIs to assess for peripheral arterial disease. Code(s): I73.9 - PERIPHERAL VASCULAR DISEASE, UNSPECIFIED (3) Essential hypertension Current Visit: Yes Status: Acute Assessment & Plan: Monitor BP on current regimen. Code(s): I10 - ESSENTIAL (PRIMARY) HYPERTENSION (4) Chronic renal insufficiency Current Visit: Yes Status: Acute Assessment & Plan: Had CTA to rule out PE. Monitor renal function. Code(s): N18.9 - CHRONIC KIDNEY DISEASE, UNSPECIFIED Telemedicine Encounter - Telemedicine Encounter Telemedicine Encounter: "The entirety of this encounter was performed via Telemedicine" This visit was performed using real-time audio and video connection between my location and thepatients locationwith the assistance of a surrogateat the patients location. Written or verbal consent was obtained from the pa tient/guardian to perform this visit usingsynchrCollaborative Medical Technologytelemedicine technology. Any patient questions regarding the telemedicine interaction were answered.
[2024-03-14 08:18] VITALS: RESP 16
[2024-03-14 08:23] LABS: Hematocrit 40.7 % (40.1-51.0); Hemoglobin 13.6 g/dL (13.7-17.5); Mean Cell Volume 92.9 fL (79.0-92.2); Mean Corpuscular Hemoglobin 31.1 pg (25.7-32.2); Mean Corpuscular Hgb Concent. 33.4 g/dL (32.3-36.5); Mean Platelet Volume 9.9 fL (9.4-12.4); Platelet Count 225 x10^3/uL (163-337); Red Blood Count 4.38 x10^6/uL (4.63-6.08); Red Cell Distribution Width 13.6 % (11.6-14.4); White Blood Count 8.6 x10^3/uL (4.23-9.07)
[2024-03-14 08:31] LABS: Calcium 8.9 mg/dL (8.4-10.2); Creatinine 1 1.32 mg/dL (0.66-1.25); EST GLOMERULAR FILTRATION RATE 55.6 ML/MIN
--- NOTE | 2024-03-14 08:45 | XRAY ---
Indication: Chest pain. Short of breath. Elevated d-dimer. Multiple contiguous axial images obtained through the chest using 80 cc Isovue 370 contrast and PE protocol. Comparison: None Good opacification pulmonary arteries to include the lobar and segmental branches. No pulmonary embolus. Heart not enlarged with scattered coronary calcifications. Aorta mildly arteriosclerotic without aneurysm/dissection. Tiny mediastinal and right hilar calcified nodes. No pathologic mediastinal/hilar lymphadenopathy. Small hiatal hernia. Lungs demonstrates moderate diffuse pulmonary emphysema, bilateral peripheral fibrosis/scarring, and small medial right upper lobe calcified granuloma. Inferior right upper lobe demonstrates 5 mm noncalcified nodule (image 30) possibly granulomatous. No infiltrate, consolidation, or effusion. Bony thorax intact with osteopenia, mild/moderate degenerative changes throughout spine, minimal levoscoliosis, and small T6/T8/T9 Schmorl nodes. Limited upper abdomen demonstrates fatty liver, 4 cm caudate hepatic cyst, tiny hepatic/splenic calcified granulomas, and incompletely visualized 3.6 cm distal AAA. Impression: 1. Negative pulmonary embolus. No acute cardiopulmonary abnormalities. 2. Chronic findings including pulmonary emphysema, fibrosis/scarring, hiatal hernia, chronic bony findings, fatty liver, hepatic cyst, arteriosclerotic disease with distal AAA, and old granulomatous disease.
[2024-03-14] MEDS: Lexapro PO SCH (09:14)
[2024-03-14] MEDS: Protonix 40MG Tablet PO SCH (09:14)
[2024-03-14] MEDS: HYDRODIURIL 25 MG PO SCH (09:14)
[2024-03-14] MEDS: DIOVAN PO SCH (09:14)
[2024-03-14] MEDS: Ecotrin 325 MG PO SCH (09:15)
[2024-03-14] MEDS: ENOXAPARIN SODIUM SQ SCH (09:16)
[2024-03-14] MEDS ORDERED: [UNRECOGNIZED DRUG - OTHER] PO SCH (10:00)
[2024-03-14] MEDS ORDERED: ZOCOR 20MG PO SCH ×2 (10:00→22:00)
[2024-03-14] MEDS ORDERED: VALSARTAN PO SCH (10:00)
[2024-03-14] MEDS ORDERED: NON-FORMULARY ITEM (Atorvastatin Calcium [Lipitor] 20 MG Tablet) PO SCH (10:00)
[2024-03-14] MEDS ORDERED: HYDROCHLOROTHIAZIDE PO SCH (10:00)
--- NOTE | 2024-03-14 10:48 | XRAY ---
Indication: Bilateral lower extremity discoloration. Hyperlipidemia. Bilateral ankle brachial index exam performed. Comparison: None Right arm brachial pressure is 149. Right ankle pressure is 112. Ankle-brachial index is 0.75 favoring moderate ischemic disease. Left arm brachial pressure is 148. Left ankle pressure is 141. Ankle-brachial index is 0.95, normal. Impression: 1. Right PAULINO 0.75 favors moderate ischemic disease. 2. Normal left PAULINO.
[2024-03-14 12:24] VITALS: BP 134/66; PULSE 74; TEMP 97.9; O2SAT 95
--- NOTE | 2024-03-14 12:42 | PCM.DS ---
Discharge Summary Date of Admission: 03/13/24 19:00 Date of Discharge: 03/14/24 Admitting Physician: GWEN MIRZA MD Primary Care Provider: DONNA LAGUNA Allergies Allergies No Known Drug Allergies Allergy (Verified 09/28/18 11:56) Hospital Summary - Hospital Course Hospital Course: is a 79 year old male with a history of hypertension, hypercholesterolemia, and tobacco use, but with no history of CAD (last cardiac stress test was in 2019) who presented to the ED for evaluation of intermittent chest pain that has been ongoing throughout the week. However today patient was working on his gutters and the pain reoccurred. Patient checked his pulse on a pulse oximeter and reports that it was 180. No active chest pain at this time. Patient took a 181 mg aspirin just prior to arrival. No associated nausea no vomiting no diaphoresis. Symptoms when present were moderate in intensity with a cramping quality. Activity seems to worsen symptoms. Patient otherwise feels well. He voices no other complaints or concerns at this time. The patient also reported cramping and discoloration in both legs for the past several months. The patient's son and [id number] are present at bedside for my evaluation. - Vitals & Intake/Output Vital Signs: Vital Signs Temperature 97.9 F 03/14/24 12:00 Pulse Rate 74 03/14/24 12:00 Respiratory Rate 16 03/14/24 12:00 Blood Pressure 134/66 03/14/24 12:00 O2 Sat by Pulse Oximetry 95 03/14/24 12:00 Intake & Output: Intake & Output 03/12/24 03/13/24 03/14/24 03/15/24 11:59 11:59 11:59 11:59 Intake Total 600 Balance 600 Weight 100.5 kg - Lab Result Diagrams: 03/14/24 05:00 03/14/24 05:00 Lab Results-Last 24 Hrs: Lab Results-Last 24 Hours 03/13/24 03/13/24 03/13/24 Range/Units 15:30 15:30 15:30 WBC 9.5 H (4.23-9.07) x10^3/uL RBC 4.71 (4.63-6.08) x10^6/uL Hgb 14.8 (13.7-17.5) g/dL Hct 43.1 (40.1-51.0) % MCV 91.5 (79.0-92.2) fL MCH 31.4 (25.7-32.2) pg MCHC 34.3 (32.3-36.5) g/dL RDW 13.3 (11.6-14.4) % Plt Count 241 (163-337) x10^3/uL MPV 8.7 L (9.4-12.4) fL Gran % 77.5 H (34.0-67.9) % Immature Gran % (Auto) 0.2 (0.001-0.429) % Nucleat RBC Rel Count 0.0 (0.00-0.2) % Eos # (Auto) 0.12 (0.04-0.54) x10^3/uL Immature Gran # (Auto) 0.02 (0.001-0.031) x10^3u/L Absolute Lymphs (auto) 1.17 L (1.32-3.57) x10^3/uL Absolute Monos (auto) 0.79 (0.30-0.82) x10^3/uL Absolute Nucleated RBC 0.00 (0.00-0.012) x10^3u/L Lymphocytes % 12.3 L (21.8-53.1) % Monocytes % 8.3 (5.3-12.2) % Eosinophils % 1.3 (0.8-7.0) % Basophils % 0.4 (0.2-1.2) % Absolute Granulocytes 7.34 H (1.78-5.38) x10^3/uL Basophils # 0.04 (0.01-0.08) x10^3/uL D-Dimer 0.75 H* (0.0-0.50) mg/L Sodium 136 (135-145) mmol/L Potassium 4.5 (3.5-5.1) mmol/L Chloride 103 (98-107) mmol/L Carbon Dioxide 23 (22-30) mmol/L Anion Gap 14.7 (5-15) MEQ/L BUN 18 (9-20) mg/dL Creatinine 1.55 H (0.66-1.25) mg/dL Estimated GFR 45.8 ML/MIN Glucose 129 H (74-106) mg/dL Calcium 9.4 (8.4-10.2) mg/dL Total Bilirubin 0.50 (0.2-1.3) mg/dL AST 26 (17-59) U/L ALT 25 (0-50) U/L Alkaline Phosphatase 86 (38-126) U/L Troponin I (0.000-0.033) ng/mL NT-Pro-B Natriuret Pep 133 (<300) pg/mL Serum Total Protein 7.0 (6.3-8.2) g/dL Albumin 4.1 (3.5-5.0) g/dL Triglycerides (30-150) mg/dL Cholesterol (50-200) mg/dL LDL Cholesterol (30-100) mg/dL HDL Cholesterol (40-60) mg/dL Heart Disease Risk Ratio Urine Color (Yellow) Urine Appearance (Clear) Urine pH (4.6-8.0) Ur Specific [place] (1.005-1.030) Urine Protein (Negative) Urine Glucose (UA) (Negative) mg/dL Urine Ketones (Negative) Urine Blood (Negative) Urine Nitrite (Negative) Urine Bilirubin (Negative) Urine Urobilinogen (0.2) mg/dL Ur Leukocyte Esterase (Negative) U Hyaline Cast (Auto) (0-2) /LPF Urine Microscopic RBC (0-5) /HPF Urine Microscopic WBC (0-5) /HPF Ur Epithelial Cells (None Seen) /HPF Urine Bacteria (None Seen) /HPF Urine Culture Reflexed (NO) 03/13/24 03/13/24 03/13/24 Range/Units 15:30 18:05 18:20 WBC (4.23-9.07) x10^3/uL RBC (4.63-6.08) x10^6/uL Hgb (13.7-17.5) g/dL Hct (40.1-51.0) % MCV (79.0-92.2) fL MCH (25.7-32.2) pg MCHC (32.3-36.5) g/dL RDW (11.6-14.4) % Plt Count (163-337) x10^3/uL MPV (9.4-12.4) fL Gran % (34.0-67.9) % Immature Gran % (Auto) (0.001-0.429) % Nucleat RBC Rel Count (0.00-0.2) % Eos # (Auto) (0.04-0.54) x10^3/uL Immature Gran # (Auto) (0.001-0.031) x10^3u/L Absolute Lymphs (auto) (1.32-3.57) x10^3/uL Absolute Monos (auto) (0.30-0.82) x10^3/uL Absolute Nucleated RBC (0.00-0.012) x10^3u/L Lymphocytes % (21.8-53.1) % Monocytes % (5.3-12.2) % Eosinophils % (0.8-7.0) % Basophils % (0.2-1.2) % Absolute Granulocytes (1.78-5.38) x10^3/uL Basophils # (0.01-0.08) x10^3/uL D-Dimer (0.0-0.50) mg/L Sodium (135-145) mmol/L Potassium (3.5-5.1) mmol/L Chloride (98-107) mmol/L Carbon Dioxide (22-30) mmol/L Anion Gap (5-15) MEQ/L BUN (9-20) mg/dL Creatinine (0.66-1.25) mg/dL Estimated GFR ML/MIN Glucose (74-106) mg/dL Calcium (8.4-10.2) mg/dL Total Bilirubin (0.2-1.3) mg/dL AST (17-59) U/L ALT (0-50) U/L Alkaline Phosphatase (38-126) U/L Troponin I < 0.012 < 0.012 (0.000-0.033) ng/mL NT-Pro-B Natriuret Pep (<300) pg/mL Serum Total Protein (6.3-8.2) g/dL Albumin (3.5-5.0) g/dL Triglycerides (30-150) mg/dL Cholesterol (50-200) mg/dL LDL Cholesterol (30-100) mg/dL HDL Cholesterol (40-60) mg/dL Heart Disease Risk Ratio Urine Color Yellow (Yellow) Urine Appearance Clear (Clear) Urine pH 7.5 (4.6-8.0) Ur Specific [place] >=1.030 A (1.005-1.030) Urine Protein Negative (Negative) Urine Glucose (UA) Negative (Negative) mg/dL Urine Ketones Negative (Negative) Urine Blood Negative (Negative) Urine Nitrite Negative (Negative) Urine Bilirubin Negative (Negative) Urine Urobilinogen 1.0 A (0.2) mg/dL Ur Leukocyte Esterase Negative (Negative) U Hyaline Cast (Auto) 3-5 A (0-2) /LPF Urine Microscopic RBC 3-5 (0-5) /HPF Urine Microscopic WBC 0-2 (0-5) /HPF Ur Epithelial Cells None Seen (None Seen) /HPF Urine Bacteria None Seen (None Seen) /HPF Urine Culture Reflexed NO (NO) 03/14/24 03/14/24 03/14/24 Range/Units 04:30 04:30 05:00 WBC 8.6 (4.23-9.07) x10^3/uL RBC 4.38 L (4.63-6.08) x10^6/uL Hgb 13.6 L (13.7-17.5) g/dL Hct 40.7 (40.1-51.0) % MCV 92.9 H (79.0-92.2) fL MCH 31.1 (25.7-32.2) pg MCHC 33.4 (32.3-36.5) g/dL RDW 13.6 (11.6-14.4) % Plt Count 225 (163-337) x10^3/uL MPV 9.9 (9.4-12.4) fL Gran % (34.0-67.9) % Immature Gran % (Auto) (0.001-0.429) % Nucleat RBC Rel Count (0.00-0.2) % Eos # (Auto) (0.04-0.54) x10^3/uL Immature Gran # (Auto) (0.001-0.031) x10^3u/L Absolute Lymphs (auto) (1.32-3.57) x10^3/uL Absolute Monos (auto) (0.30-0.82) x10^3/uL Absolute Nucleated RBC (0.00-0.012) x10^3u/L Lymphocytes % (21.8-53.1) % Monocytes % (5.3-12.2) % Eosinophils % (0.8-7.0) % Basophils % (0.2-1.2) % Absolute Granulocytes (1.78-5.38) x10^3/uL Basophils # (0.01-0.08) x10^3/uL D-Dimer (0.0-0.50) mg/L Sodium (135-145) mmol/L Potassium (3.5-5.1) mmol/L Chloride (98-107) mmol/L Carbon Dioxide (22-30) mmol/L Anion Gap (5-15) MEQ/L BUN (9-20) mg/dL Creatinine (0.66-1.25) mg/dL Estimated GFR ML/MIN Glucose (74-106) mg/dL Calcium (8.4-10.2) mg/dL Total Bilirubin (0.2-1.3) mg/dL AST (17-59) U/L ALT (0-50) U/L Alkaline Phosphatase (38-126) U/L Troponin I < 0.012 (0.000-0.033) ng/mL NT-Pro-B Natriuret Pep (<300) pg/mL Serum Total Protein (6.3-8.2) g/dL Albumin (3.5-5.0) g/dL Triglycerides 236 H (30-150) mg/dL Cholesterol 194 (50-200) mg/dL LDL Cholesterol 109 H (30-100) mg/dL HDL Cholesterol 48 (40-60) mg/dL Heart Disease Risk Ratio 4.0 Urine Color (Yellow) Urine Appearance (Clear) Urine pH (4.6-8.0) Ur Specific [place] (1.005-1.030) Urine Protein (Negative) Urine Glucose (UA) (Negative) mg/dL Urine Ketones (Negative) Urine Blood (Negative) Urine Nitrite (Negative) Urine Bilirubin (Negative) Urine Urobilinogen (0.2) mg/dL Ur Leukocyte Esterase (Negative) U Hyaline Cast (Auto) (0-2) /LPF Urine Microscopic RBC (0-5) /HPF Urine Microscopic WBC (0-5) /HPF Ur Epithelial Cells (None Seen) /HPF Urine Bacteria (None Seen) /HPF Urine Culture Reflexed (NO) 03/14/24 Range/Units 05:00 WBC (4.23-9.07) x10^3/uL RBC (4.63-6.08) x10^6/uL Hgb (13.7-17.5) g/dL Hct (40.1-51.0) % MCV (79.0-92.2) fL MCH (25.7-32.2) pg MCHC (32.3-36.5) g/dL RDW (11.6-14.4) % Plt Count (163-337) x10^3/uL MPV (9.4-12.4) fL Gran % (34.0-67.9) % Immature Gran % (Auto) (0.001-0.429) % Nucleat RBC Rel Count (0.00-0.2) % Eos # (Auto) (0.04-0.54) x10^3/uL Immature Gran # (Auto) (0.001-0.031) x10^3u/L Absolute Lymphs (auto) (1.32-3.57) x10^3/uL Absolute Monos (auto) (0.30-0.82) x10^3/uL Absolute Nucleated RBC (0.00-0.012) x10^3u/L Lymphocytes % (21.8-53.1) % Monocytes % (5.3-12.2) % Eosinophils % (0.8-7.0) % Basophils % (0.2-1.2) % Absolute Granulocytes (1.78-5.38) x10^3/uL Basophils # (0.01-0.08) x10^3/uL D-Dimer (0.0-0.50) mg/L Sodium 136 (135-145) mmol/L Potassium 4.0 (3.5-5.1) mmol/L Chloride 103 (98-107) mmol/L Carbon Dioxide 25 (22-30) mmol/L Anion Gap 12.0 (5-15) MEQ/L BUN 17 (9-20) mg/dL Creatinine 1.32 H (0.66-1.25) mg/dL Estimated GFR 55.6 ML/MIN Glucose 96 (74-106) mg/dL Calcium 8.9 (8.4-10.2) mg/dL Total Bilirubin (0.2-1.3) mg/dL AST (17-59) U/L ALT (0-50) U/L Alkaline Phosphatase (38-126) U/L Troponin I (0.000-0.033) ng/mL NT-Pro-B Natriuret Pep (<300) pg/mL Serum Total Protein (6.3-8.2) g/dL Albumin (3.5-5.0) g/dL Triglycerides (30-150) mg/dL Cholesterol (50-200) mg/dL LDL Cholesterol (30-100) mg/dL HDL Cholesterol (40-60) mg/dL Heart Disease Risk Ratio Urine Color (Yellow) Urine Appearance (Clear) Urine pH (4.6-8.0) Ur Specific [place] (1.005-1.030) Urine Protein (Negative) Urine Glucose (UA) (Negative) mg/dL Urine Ketones (Negative) Urine Blood (Negative) Urine Nitrite (Negative) Urine Bilirubin (Negative) Urine Urobilinogen (0.2) mg/dL Ur Leukocyte Esterase (Negative) U Hyaline Cast (Auto) (0-2) /LPF Urine Microscopic RBC (0-5) /HPF Urine Microscopic WBC (0-5) /HPF Ur Epithelial Cells (None Seen) /HPF Urine Bacteria (None Seen) /HPF Urine Culture Reflexed (NO) - Radiology Exams Ordered Rad Exams-Entire Visit: Radiology Procedures Category Date Time Status PAULINO/LIMB PRESSURES BILATERAL [US] Routine Exams 03/14/24 08:04 Completed CHEST WITH CONTRAST [CT] Stat Exams 03/13/24 16:13 Completed ECHO W/2D AND DOPPLER [US] Routine Exams 03/14/24 08:00 Taken - Procedures and Test Procedures and Tests throughout Hospitalization: Therapy Orders & Screens 03/13/24 21:42 Smoking Cessation Education ONCE Comment: Diagnosis: Chest pain/ACS Smoking Status: Current every day smoker How long have you smoked: years Have you smoked in the past 12 months: Yes Approximately how many cigarettes per day: 1/2 pack to full pack Do you dip or chew tobacco: Yes If,Former Smoker,when did you quit: 02/16/12 03/14/24 00:30 EKG ROUTINE Comment: Diagnosis: CHEST PAIN 03/15/24 05:00 EKG ROUTINE Comment: Diagnosis: CHEST PAIN 03/16/24 05:00 EKG ROUTINE Comment: Diagnosis: CHEST PAIN Discharge Exam General Appearance: no apparent distress, alert Neurologic Exam: alert, oriented x 3, cooperative, normal mood/affect, nml cerebellar function, sensation nml, No motor deficits Eye Exam: PERRL, EOMI, eyes nml inspection Ears, Nose, Throat Exam: normal ENT inspection, pharynx normal, moist mucous membranes Neck Exam: normal inspection, non-tender, supple, full range of motion Respiratory Exam: normal breath sounds, lungs clear, No respiratory distress Cardiovascular Exam: regular rate/rhythm, normal heart sounds Gastrointestinal/Abdomen Exam: soft, No tenderness, No mass Male Genitalia Exam: deferred Rectal Exam: deferred Back Exam: normal inspection, normal range of motion, No CVA tenderness, No vertebral tenderness Extremity Exam: normal inspection, normal range of motion Skin Exam: normal color, warm, dry Final Diagnosis/Problem List - Final Discharge Diagnosis/Problem (1) Chest pain Current Visit: Yes Status: Acute Assessment & Plan: - Trop x3 negative - F/U op with Dr. Enrique - pt wants to make his own appointment for f/u - PAULINO's R favors mod ischemic disease - echo pending - Tele - CBC, CMP reviewed Code(s): R07.9 - CHEST PAIN, UNSPECIFIED (2) Chronic renal insufficiency Current Visit: Yes Status: Chronic Assessment & Plan: - Creat 1.32- appears to be at baseline Code(s): N18.9 - CHRONIC KIDNEY DISEASE, UNSPECIFIED (3) Claudication Current Visit: Yes Status: Chronic Assessment & Plan: - lipid panel reviewed and statin increased - On ASA - PAULINO's reviewed- f/u with cardiology OP Code(s): I73.9 - PERIPHERAL VASCULAR DISEASE, UNSPECIFIED (4) Essential hypertension Current Visit: Yes Status: Acute Assessment & Plan: -Monitor BP on current regimen. - BP stable Code(s): I10 - ESSENTIAL (PRIMARY) HYPERTENSION (5) Elevated d-dimer Current Visit: Yes Status: Acute Assessment & Plan: - D-Dimer 0.75 - CTA negative for PE Code(s): R79.89 - OTHER SPECIFIED ABNORMAL FINDINGS OF BLOOD CHEMISTRY (6) Alcohol abuse Current Visit: Yes Status: Chronic Assessment & Plan: - pt states he drinks daily to get drunk , unsure of how much he drinks daily - advised cessation or reducing amount Code(s): F10.10 - ALCOHOL ABUSE, UNCOMPLICATED (7) Tobacco abuse Current Visit: Yes Status: Chronic Assessment & Plan: - advised cessation - 1800quit now information provided Code(s): Z72.0 - TOBACCO USE (8) Fatty liver Current Visit: Yes Status: Acute Assessment & Plan: - as seen on CT - advised to decrease ETOH use and f/u with PCP OP. Code(s): K76.0 - FATTY (CHANGE OF) LIVER, NOT ELSEWHERE CLASSIFIED (9) Emphysema lung Current Visit: Yes Status: Chronic Assessment & Plan: - Will need OP f/u with PCP and PULM Code(s): J43.9 - EMPHYSEMA, UNSPECIFIED (10) Hiatal hernia Current Visit: Yes Status: Chronic Assessment & Plan: - will start OP PPI- as chest discomfort may be related to this and his ETOH use - As seen on CT Code(s): K44.9 - DIAPHRAGMATIC HERNIA WITHOUT OBSTRUCTION OR GANGRENE (11) AAA (abdominal aortic aneurysm) Current Visit: Yes Status: Chronic Assessment & Plan: - 3.6 cm AAA seen on CT- per guidelines will need US of AAA Q 2-3 years- F/U with cardiology OP - Continue ASA - advised tobacco cessation - Statin Code(s): I71.40 - ABDOMINAL AORTIC ANEURYSM, WITHOUT RUPTURE, UNSPECIFIED - Discharge Discharge Date: 03/14/24 Disposition: Home, Self-Care Condition: Stable Prescriptions: New Aspirin EC 81 mg [Ecotrin 81 mg] 81 mg PO DAILY 30 Days #30 tablet Continue Escitalopram Oxalate [Lexapro] 10 mg PO DAILY Valsartan/Hydrochlorothiazide [Valsartan-Hctz 160-25 mg Tab] 1 ea PO DAILY PANTOPRAZOLE 40 mg Tablet [Protonix 40MG Tablet] 40 mg PO DAILY Changed Atorvastatin Calcium [Lipitor] 40 mg PO DAILY 30 Days #60 Follow up with: DONNA LAGUNA MD [Primary Care Provider] -
== END 2024-03-14 13:25 | disposition home or self-care (01) ==
LOC: ED 15:35 → MED SURG 19:00
PROVIDERS: ADMIT Internal Medicine; ATTEND Internal Medicine
DX: R07.9 Chest pain, unspecified (principal); I12.9 Hypertensive chronic kidney disease with stage 1 through stage 4 chronic kidney disease, or unspecified chronic kidney disease; N18.9 Chronic kidney disease, unspecified; I73.9 Peripheral vascular disease, unspecified; R79.89 Other specified abnormal findings of blood chemistry; F10.10 Alcohol abuse, uncomplicated; Z72.0 Tobacco use; K76.0 Fatty (change of) liver, not elsewhere classified; J43.9 Emphysema, unspecified; K44.9 Diaphragmatic hernia without obstruction or gangrene; I71.40 Abdominal aortic aneurysm, without rupture, unspecified; Z79.899 Other long term (current) drug therapy
CPT/HCPCS: 36415; 71260; 80048; 80053; 80061; 81001; 83721; 83880; 84484; 85025; 85027; 85379; 93005; 93041; 93268; 93306; 93922; 94760; 99285; G0378; Q3014; A9270-GY